=== PATIENT | female | born 1950 | race Caucasian/White ===

== ENCOUNTER 2021-11-29 12:10 | Observation (INO) ==
[~2021-11-29 12:10] MED LIST: Buffered Lidocaine 1% SYRIN 1 ml INTRADERM ONE; Famotidine IV 10 MG/ML 2 ml VIAL (20 mg) IV ONE; Lactated Ringers 1000 ml BAG 1,000 ML IV SCH
[2021-11-29] MEDS ORDERED: ceFAZolin 2 GM in NS PREMIX 2 GM/100 ML BAG IVPB ONE (12:56)
[2021-11-29] MEDS ORDERED: Famotidine IV 10 MG/ML 2 ml VIAL (20 mg) ONE (12:56)
[2021-11-29] MEDS ORDERED: ROPIVACAINE 5 MG/ML 30 ML BTL (0.5%) ONE ×2 (14:29→14:56)
[2021-11-29] MEDS ORDERED: fentaNYL 100 mcg/2 ml 50 MCG/ML VIAL ONE ×3 (14:29→18:43)
[2021-11-29] MEDS ORDERED: Lidocaine 2% PF 5 ML VIAL ONE (14:29)
[2021-11-29] MEDS ORDERED: Midazolam 5 mg/5 ml VIAL 1 mg/ml 5 ml VIAL (5 mg) ONE (14:29)
[2021-11-29] MEDS ORDERED: Midazolam 2 mg/2 ml VIAL 1 mg/ml 2 ml VIAL (2 mg) ONE (14:52)
[2021-11-29] MEDS ORDERED: Naloxone 0.4 mg VIAL 0.4 mg/ml 1 ml VIAL IV PRN (16:10)
[2021-11-29] MEDS ORDERED: Ondansetron 4 mg VIAL 2 MG/ML 2 ml VIAL IV PRN ×2 (16:10→18:03)
[2021-11-29] MEDS ORDERED: Phenylephrine 40 mcg/mL 10mL (400mcg) SYRINGE ONE (16:31)
[2021-11-29] MEDS ORDERED: Magnesium Hydroxide LIQ 30 ML UDC PO PRN (18:03)
[2021-11-29] MEDS ORDERED: Lactulose 30 ml UDC PO PRN (18:03)
[2021-11-29] MEDS ORDERED: Morphine 2 MG/ML SYRINGE IV PRN (18:03)
[2021-11-29] MEDS ORDERED: Ondansetron ODT 4 mg TAB 4 MG TAB PO PRN (18:03)
[2021-11-29] MEDS: fentaNYL 100 mcg/2 ml 50 MCG/ML VIAL IV PRN ×3 (18:46→19:52)
[2021-11-29] MEDS ORDERED: Lactated Ringers 1000 ml BAG 1,000 ML IV SCH (19:00)
[2021-11-29] MEDS ORDERED: Ondansetron 4 mg VIAL 2 MG/ML 2 ml VIAL ONE (20:03)
[2021-11-29] MEDS: Magnesium Hydroxide LIQ 30 ML UDC PO SCH (21:45)
[2021-11-30] MEDS: ceFAZolin 1 GM ADVAN 1 GM in NS 0.9% 50 ML 50 ML IVPB SCH ×3 (00:09→16:16)
[2021-11-30 08:48] LABS: Hematocrit 32 % (35-47); Hemoglobin 11.7 g/dL (12.0-16.0); Mean Platelet Volume 7.2 fL (7.4-10.4); Platelet Count 243 10^3/uL (150-450)
[2021-11-30] MEDS ORDERED: Irbesartan 150 mg TAB (NF) PO SCH (09:00)
[2021-11-30 09:38] LABS: Calcium 8.7 mg/dL (8.6-10.3); Magnesium 1.8 mg/dL (1.9-2.7); Potassium 3.3 mmol/L (3.5-5.0); eGFR CKD-EPI 87.5 (>60)
[2021-11-30] MEDS: Magnesium Hydroxide LIQ 30 ML UDC PO SCH ×2 (09:55→20:11)
[2021-11-30] MEDS: Vitamin THERAPEUTIC TAB PO SCH (09:57)
[2021-11-30] MEDS ORDERED: Magnesium Sulfate 2 gm BAG 2 GM/50 ML BAG IVPB ONE (15:03)
[2021-11-30] MEDS ORDERED: Potassium Chloride LIQUID 20 MEQ/15 ML LIQUID PO ONE (15:03)
[2021-11-30] MEDS ORDERED: Potassium Chlor 20 meq TAB.ER PO ONE (18:00)
[2021-12-01 04:05] VITALS: BP 145/83
[2021-12-01 06:13] LABS: Hematocrit 32 % (35-47); Hemoglobin 10.9 g/dL (12.0-16.0); Mean Platelet Volume 7.4 fL (7.4-10.4); Platelet Count 226 10^3/uL (150-450)
[2021-12-01 06:43] LABS: Calcium 8.2 mg/dL (8.6-10.3); Magnesium 2.6 mg/dL (1.9-2.7); Potassium 3.9 mmol/L (3.5-5.0); eGFR CKD-EPI 97.1 (>60)
[2021-12-01] MEDS: Vitamin THERAPEUTIC TAB PO SCH (09:40)
[2021-12-01] MEDS: Magnesium Hydroxide LIQ 30 ML UDC PO SCH (09:40)
== END 2021-12-01 13:10 | disposition home or self-care (01) ==
LOC: OR 12:10 → SSU 12:10
PROVIDERS: ADMIT Orthopaedic Surgery Adult Reconstructive Orthopaedic Surgery; ATTEND Orthopaedic Surgery Adult Reconstructive Orthopaedic Surgery